=== PATIENT | male | born 1980 ===

== ENCOUNTER 2023-07-03 12:16 | Outpatient (REF) | payer SELFPAY ==
--- NOTE | ~2023-07-03 | US_ITS ---
EXAMINATION: US VENOUS ULTRASOUND WITH DOPPLER LOWER EXTREMITY, BILATERAL CLINICAL INFORMATION: Edema COMPARISON: None available. TECHNIQUE: Ultrasound of the deep veins is performed from the hip to the calf with compression sonography and color and pulse Doppler assessment. Spectral analysis with color-flow imaging is performed. FINDINGS: RIGHT: There is normal venous compression and respiratory variation and augmented flow. The visualized common femoral vein, superficial femoral vein, profunda femoral vein, popliteal vein, and the trifurcation region shows no evidence of deep venous thrombosis. LEFT: There is normal venous compression and respiratory variation and augmented flow. The visualized common femoral vein, superficial femoral vein, profunda femoral vein, popliteal vein, and the trifurcation region shows no evidence of deep venous thrombosis. US/US venous duplex LE BI IMPRESSION: No DVT demonstrated in the right and left lower extremity.
== END 2023-07-03 12:17 | disposition home or self-care (01) ==
LOC: HO.US 12:16
PROVIDERS: PCP Hospitalist; Visit Provider Hospitalist
DX: R60.0 Localized edema (principal)
CPT/HCPCS: 93970

== ENCOUNTER 2023-08-05 09:33 | Outpatient (REF) | payer MEDICARE, MEDICAID, SELFPAY ==
--- NOTE | ~2023-08-05 | XR_ITS ---
EXAMINATION: XR chest 2V CLINICAL INFORMATION: Reason for Exam R/O ASPIRATION PNE RELATED TO GASTRO REFLUX COMPARISON: None TECHNIQUE: 2 views of the chest FINDINGS: Retrocardiac hazy opacity likely reflects aspiration or infection. No pneumothorax or pleural effusion. Normal cardiomediastinal silhouette. XR/XR chest 2V Impression: Retrocardiac hazy opacity likely reflects aspiration or infection.
== END 2023-08-05 09:34 | disposition home or self-care (01) ==
LOC: HO.XRAY 09:33
PROVIDERS: PCP Hospitalist; Visit Provider Hospitalist
DX: K21.9 Gastro-esophageal reflux disease without esophagitis (principal)
CPT/HCPCS: 71046

== ENCOUNTER 2023-11-29 10:31 | Emergency (ER) | payer MEDICARE, MEDICAID, SELFPAY ==
--- NOTE | ~2023-11-29 | XR_ITS ---
Examination: XR elbow RT min 3V, XR humerus RT Indication: Pain, fall Comparison: No pertinent prior studies are currently available for comparison. Technique: 2 views of the right humerus with 3 additional views of the right elbow Findings: Humeral head is well-seated within the glenoid fossa. No acute fracture or dislocation to the shoulder. The humeral shaft is unremarkable. Elbow joint effusion is present. There is extensive degenerative changes about the elbow with several small ossific loose bodies seen within the elbow joint space. There is chronic deformity of the radial head and adjacent capitellum suggesting sequela of chronic injury. I do not appreciate any definitive acute superimposed fracture or dislocation on these chronic appearing changes subtle acute on chronic injury would be difficult to determine XR/XR elbow RT min 3V Impression: Extensive chronic appearing changes to the elbow. I do not appreciate any definitive acute superimposed fracture or dislocation on these chronic appearing changes. If there is persistent clinical concern, CT scan could be obtained.
--- NOTE | ~2023-11-29 | XR_ITS ---
Examination: XR elbow RT min 3V, XR humerus RT Indication: Pain, fall Comparison: No pertinent prior studies are currently available for comparison. Technique: 2 views of the right humerus with 3 additional views of the right elbow Findings: Humeral head is well-seated within the glenoid fossa. No acute fracture or dislocation to the shoulder. The humeral shaft is unremarkable. Elbow joint effusion is present. There is extensive degenerative changes about the elbow with several small ossific loose bodies seen within the elbow joint space. There is chronic deformity of the radial head and adjacent capitellum suggesting sequela of chronic injury. I do not appreciate any definitive acute superimposed fracture or dislocation on these chronic appearing changes subtle acute on chronic injury would be difficult to determine XR/XR humerus RT Impression: Extensive chronic appearing changes to the elbow. I do not appreciate any definitive acute superimposed fracture or dislocation on these chronic appearing changes. If there is persistent clinical concern, CT scan could be obtained.
[2023-11-29 10:41] VITALS: BP 141/93; BP 162/108; PULSE 82; PULSE 89; RESP 17; TEMP 36.6; O2SAT 94; O2SAT 95; BMI 36.5
--- NOTE | 2023-11-29 10:51 | ED_ITS ---
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 Related Data Allergies Allergy/AdvReac Type Severity Reaction Status Date / Time lactose AdvReac Unknown Verified 11/29/23 10:46 Review of Systems Review of Systems: Pertinent positives and negatives as stated in HPI [facility] Past Medical History Source: nursing notes reviewed Social History Social History Advance Directives: No Physical Exam Vital Signs: Vital Signs: Last Vital Signs Temp 98 F 11/29/23 10:41 Pulse 82 11/29/23 10:41 Resp 17 11/29/23 10:41 BP 141/93 H 11/29/23 10:41 Pulse Ox 94 11/29/23 10:41 O2 Del Method Room Air 11/29/23 10:41 BMI result Body Mass Index 36.5 VITAL SIGNS: Reviewed. GENERAL: Well developed, well nourished, in no acute distress. HEAD: Normocephalic/atraumatic EYES: P asymmetrical at baseline/ RRLA, EOMI intact without pain EARS: Ext canals without abnormality NOSE: Nares patent bilateral OROPHARYNX: no oral lesions noted, posterior pharynx clear NECK: Supple, no adenopathy LUNGS: Normal breath sounds. No adventitious sounds or accessory muscle use. SpO2<94> CARDIOVASCULAR: Regular rate and rhythm without noted murmurs ABDOMEN: Soft, non-tender, non-distended with bowel sounds. MUSCULOSKELETAL: No tenderness, deformities, or effusions noted on gross inspection. EXTREMITIES: No cyanosis, clubbing or edema. RIGHT UPPER EXTREMITY: Patient is holding his arm in a flexed position at the elbow and there is tenderness to palpation at distal aspect of the humerus and over elbow, palpable pulses SKIN: Inspection of the skin reveals no rashes NEUROLOGIC: Alert and oriented x 3. Strength and sensation to light touch were grossly intact x 4. Medical Decision Making Medical Decision Making MDM Narrative: 43-year-old male with history and clinical presentation, DDX: Fracture, dislocated X-ray negative for fracture or dislocation. Patient given Tylenol and ibuprofen. Differential Diagnosis Differential Diagnoses: The differential diagnosis associated with the presentation includes Please see the discussion above Admission/Observation Consideration of admission/observation: Escalation of care including admission/observation considered Please see the discussion above Radiology Impression Discussion of test interpretation with radiology: I have reviewed the radiologist's reading. Radiologist Impression: Please see the discussion above External Record Review External record reviewed: Prior outpatient radiology Critical Care Time Critical Care Time Critical Care Time: Yes Total Critical Care Time: 30 Attestation: I personally attest to this time spent taking care of the patient. Discharge Plan Discharge Clinical Impression: Arm pain, right Patient Disposition: Home, Self-Care Instructions: Arm Pain (ED) Print Language: Citizen Of [place]
[2023-11-29] MEDS: Ibuprofen 400 MG TABLET PO (14:52)
[2023-11-29] MEDS: Acetaminophen 325 MG TABLET 975 MG PO (14:52)
[2023-11-29 16:02] VITALS: BP 124/78; PULSE 75; RESP 17; TEMP 36.6; O2SAT 96
--- NOTE | 2023-11-29 16:03 | PC.NURSE ---
patient going back to [facility] via ems
== END 2023-11-29 16:27 | disposition home or self-care (01) ==
PROVIDERS: Emergency Provider Student in an Organized Health Care Education/Training Program; PCP Hospitalist
DX: M25.521 Pain in right elbow (principal); Z91.81 History of falling
CPT/HCPCS: 73060; 73080; 99283